=== PATIENT | female | born 1985 | race African-American/Black ===

== ENCOUNTER 2023-08-01 11:44 | Emergency (ER) | payer MEDICAID, SELFPAY ==
--- NOTE | ~2023-08-01 | XR_ITS ---
EXAMINATION: XR LUMBOSACRAL SPINE CLINICAL INFORMATION: Right lumbar pain COMPARISON: None available. TECHNIQUE: Three views of the lumbosacral spine. FINDINGS: The vertebral bodies and posterior elements are normal. The disc spaces are preserved and the vertebral alignment is normal. The paraspinal soft tissues are normal. XR/XR lumbar spine 2-3V IMPRESSION: Unremarkable lumbar spine examination.
--- NOTE | 2023-08-01 11:55 | ED.GENADULT ---
HPI - General Adult General Chief complaint: Back Pain/Injury Stated complaint: Back Pain No Injury Time Seen by Provider: 08/01/23 16:00 Source: patient and RN notes reviewed Mode of arrival: ambulatory Limitations: no limitations History of Present Illness HPI narrative: This is a 38 year old female, with a history of back pain, presenting to the emergency department with complaints of acute on chronic back pain x several weeks, worsening over th last week. Patient denies any recent trauma or injury. Patient states that she has had ongoing problems with her back ever since she had an epidural 15 years ago. Patient describes this pain as a burning like sensation in the right lower back that radiates down her right leg and into her right great toe. She has been taking over the counter Tylenol and naproxen without any relief period she denies any urinary or bowel incontinence. Denies saddle aesthesia. She states that her job requires her to wear high heels throughout the entire day. She states that the pain worsens with movement and with palpation. No other complaints or concerns at this time. MD complaint: back pain Onset (ago): week(s) Radiation: back and extremity Severity: severe Quality: burning Pain Consistency: constant Relieving factors: none Exacerbating factors: movement Associated symptoms: denies other symptoms Treatments prior to arrival: none Related Data Previous Rx's Medication Instructions Recorded acetaminophen 500 mg tablet 500 mg PO Q6H PRN pain #30 tabs 08/01/23 (Tylenol Extra Strength) ibuprofen 600 mg tablet 600 mg PO Q6H PRN pain #30 tabs 08/01/23 lidocaine 5 % topical patch 1 patch topical DAILY #30 ea 08/01/23 (Lidoderm) methocarbamol 750 mg tablet 1,500 mg (2 x 750 mg) PO TID 72 08/01/23 hours #18 tabs oxycodone 5 mg tablet 5 mg PO Q6H PRN pain #7 tabs 08/01/23 prednisone 20 mg tablet 20 mg PO DAILY 5 days #5 tabs 08/01/23 Allergies Allergy/AdvReac Type Severity Reaction Status Date / Time amoxicillin Allergy Hives Verified 08/01/23 11:56 Penicillins Allergy Hives Verified 08/01/23 11:56 Review of Systems Review of Systems: Yes all other systems are reviewed and are negative Constitutional: Constitutional: Reports as per [facility] Social History Social History Advance Directives: No Advance Directives Information Provided: No Physical Exam ED Vital Signs: Vital Signs - 24 hr 08/01/23 11:56 08/01/23 16:11 Temperature 98.1 F 97.3 F Pulse Rate 80 69 Respiratory Rate 20 16 Blood Pressure 122/74 107/86 Pulse Oximetry 99 100 Oxygen Delivery Method Room Air Room Air BMI result Body Mass Index 35.5 Const General: cooperative, comfortable and no acute distress Orientation/consciousness: patient oriented x3 Limitations: no limitations HENMT Head: Yes normal to inspection, Yes normocephalic and Yes atraumatic Ears: hearing grossly normal bilaterally General nose exam: Normal external nose present Face and sinus: Yes normal facial exam Mouth: Normal oral and palatal mucosa present, oropharynx normal and moist mucous membranes Throat: Yes posterior oropharynx normal Eyes General: appearance normal, both eyes and all related structures Eyelids: Yes eyelids normal Conjunctivae: conjunctivae normal Sclerae: sclerae normal Pupils: Equal, round and reactive pupils present EOM: EOMs intact bilaterally Neck Neck: Yes normal visual inspection, Yes full ROM and Yes no lymphadenopathy Lymphatic: no lymphadenopathy noted Chest Chest palpation & inspection: normal inspection of the chest Resp Effort & Inspection: normal respiratory effort and able to speak in complete sentences Auscultation: clear to auscultation bilaterally, no crackles, no rales, no rhonchi and no wheezes Cardio Rate: regular rate Rhythm: regular rhythm Heart sounds: S1 normal heart sound present and S2 normal heart sound present GI Other: Abdomen soft, nontender Inspection: Yes normal to inspection Back/Spine/Pelvis Other: TTP along the lumbar paraspinous muscles into the right buttocks and right SI joint. DTR 2+, strength 5/5 in LE bilaterally. patellar reflexes 2+. Skin General skin exam: no rashes or lesions noted Trauma: no lacerations or abrasions Wounds: no wounds Neuro General: patient oriented x3 and moves all extremities Cranial nerves: Yes Equal, round and reactive pupils present Extrem General: Yes normal to inspection Right upper extremity: normal to inspection Left upper extremity: normal to inspection Right lower extremity: normal to inspection Left lower extremity: normal to inspection Course Course Course Narrative: RME:?38 yo female w/ pmhx here with spine on fire , right low back pain down buttock to foot, worse w/ walking. stabbing sensation. +paresthesias down R leg. took tylenol at 1400 yesterday. naproxen 0600 this am. No IVDU. No previous back surgeries. No injury/trauma. Denies fever, dysuria, hematuria, bowel/bladder incontinence/retention, saddle anesthesia. Plan for xrays Full HPI, ROS and PE to be performed by the primary ED provider. Medications Administered Discontinued Medications Generic Name Dose Route Start Last Admin Trade Name Derickq PRN Reason Stop Dose Admin Ketorolac Tromethamine 30 mg 08/01/23 16:56 08/01/23 17:09 Ketorolac Tromethamine 30 Mg/Ml Vial IM 08/01/23 16:57 30 mg ONCE ONE Administration Oxycodone HCl 5 mg 08/01/23 16:56 08/01/23 17:10 Oxycodone Hcl Immed Release 5 Mg Tablet PO 08/01/23 16:57 5 mg ONCE ONE Administration Medical Decision Making Medical Decision Making [facility] Narrative: This is a 38 year old female, with a history of chronic back pain, presenting to the emergency department with complaints of acute on chronic back pain for the last several weeks, worsening for the last week. On arrival, vital signs within normal limits. Patient appears visibly uncomfortable, tearful, complaining of back pain. Patient has tenderness to palpation along her lumbar spine and into her right buttocks. Symptoms consistent with sciatica exacerbation. Discussed these findings with patient. Medicated with toradol and oxycodone in the department with good relief. Patient discharged on muscle relaxants, Prednisone, and advise to follow up with a primary care physician as she likely will need physical therapy and further treatment and evaluation. Patient understands and agrees with plan. She has no red flag back symptoms on exam. Patient is ambulatory with steady gate with 5/5 strength and lower extremities come on patellar reflex is 2+ bilaterally. Patient given return precautions, Her brother is at bedside who is driving her home, ?stable for discharge. Differential Diagnosis Differential Diagnoses: The differential diagnosis associated with the presentation includes sciatica, lumbar radiculopathy, dorsalgia Radiology Impression Discussion of test interpretation with radiology: I have reviewed the radiologist's reading. Radiologist Impression: XR LUMBOSACRAL SPINE CLINICAL INFORMATION: Right lumbar pain COMPARISON: None available. TECHNIQUE: Three views of the lumbosacral spine. FINDINGS: The vertebral bodies and posterior elements are normal. The disc spaces are preserved and the vertebral alignment is normal. The paraspinal soft tissues are normal. XR/XR lumbar spine 2-3V IMPRESSION: Unremarkable lumbar spine examination. Discharge Plan Discharge Clinical Impression: Sciatica Patient Disposition: Home, Self-Care Instructions: Sciatica (ED), Acute Low Back Pain (ED), Lower Back Exercises (ED) Additional Instructions: Your seen in the emergency department due to back pain. Your symptoms are consistent with sciatica. Please take prescribed medication as directed. You need to follow-up with the primary care physician, you can use the attached form for referral. Check with your insurance company to see if they accept your insurance. Please take prescribed medication as directed. Prednisone is a steroid, this is an anti-inflammatory, this will help with the inflammation in your back. I am also prescribing you Tylenol and Motrin to be taken for moderate pain. Can alternate between the 2 for better pain relief. I am also prescribing a muscle relaxant, please be advised that this can cause drowsiness, do not drink alcohol or drive while taking this. You may also apply lidocaine patches as needed for pain. Also prescribing you oxycodone. This is a strong narcotic pain medication that can be addictive. Please be advised to only take as needed for severe pain only. Do not drink alcohol drive while taking this medication. Please see attached low back exercises to help strengthen and stretch the area. If any new or worsening symptoms occur including but not limited to worsening pain, numbness and tingling into groin, urinary for bowel incontinence. Please return for re-evaluation. Prescriptions: New acetaminophen [Tylenol Extra Strength] 500 mg tablet 500 mg PO Q6H PRN (Reason: pain) Qty: 30 0RF ibuprofen 600 mg tablet 600 mg PO Q6H PRN (Reason: pain) Qty: 30 0RF lidocaine [Lidoderm] 5 % adhesive patch,medicated 1 patch topical DAILY Qty: 30 0RF Rx Instructions: leave on most painful area for up to 12 hrs methocarbamol 750 mg tablet 1,500 mg PO TID 3 Days Qty: 18 0RF prednisone 20 mg tablet 20 mg PO DAILY 5 Days Qty: 5 0RF oxycodone 5 mg tablet 5 mg PO Q6H PRN (Reason: pain) Qty: 7 0RF Rx Instructions: Partial Fill upon patient request. Interventions: ED Discharge Assessment Last Done: 08/01/23 18:25 Discharge Date/Time: 08/01/23 18:20
[2023-08-01 11:56] VITALS: BP 122/74; PULSE 80; RESP 20; TEMP 36.7; O2SAT 99; BMI 35.5
[2023-08-01 16:11] VITALS: BP 107/86; PULSE 69; RESP 16; TEMP 36.3; O2SAT 100
[2023-08-01] MEDS: Ketorolac Tromethamine 30 MG/ML VIAL IM (17:09)
[2023-08-01] MEDS: oxyCODONE HCl Immed Release 5 MG TABLET PO (17:10)
[2023-08-01 18:00] VITALS: BP 121/65; PULSE 68; RESP 16; O2SAT 97
== END 2023-08-01 18:20 | disposition home or self-care (01) ==
PROVIDERS: Emergency Provider Emergency Medicine
DX: M54.42 Lumbago with sciatica, left side (principal); M54.41 Lumbago with sciatica, right side
CPT/HCPCS: 72100; 96372; 99284; J1885

== ENCOUNTER 2024-01-30 05:51 | Emergency (ER) | payer MEDICAID, SELFPAY ==
--- NOTE | ~2024-01-30 | XR_ITS ---
EXAMINATION: XR SHOULDER, LEFT CLINICAL INFORMATION: injury from moving sofa COMPARISON: None available. TECHNIQUE: AP external rotation, Grashey, scapular Y, and axillary views of the left shoulder. FINDINGS: The bones and soft tissues are normal. No fracture. Glenohumeral and acromioclavicular alignment is anatomic with normal joint space. No abnormal soft tissue calcifications. XR/XR shoulder LT min 2V IMPRESSION: Normal left shoulder radiographs
[2024-01-30 05:53] VITALS: BP 111/73; PULSE 74; RESP 18; TEMP 37.3; O2SAT 98; BMI 35.2
--- NOTE | 2024-01-30 06:25 | ED.EXTPRO ---
HPI - Extremity Problem General Chief complaint: Extremity Injury, Upper Stated complaint: L arm pain Time Seen by Provider: 01/30/24 06:21 Source: patient Mode of arrival: ambulatory Limitations: no limitations History of Present Illness ED Provider: Dr. Hu HPI Narrative: Patient injured her shoulder 2 months ago when she was lifting a sectional couch Complaint: extremity pain Onset (ago): month(s) Pain Consistency: constant Location: left and other (shoulder) Quality: burning and stabbing Related Data Previous Rx's ?Medication ?Instructions ?Recorded acetaminophen 500 mg tablet 500 mg PO Q6H PRN pain #30 tabs 08/01/23 (Tylenol Extra Strength) ibuprofen 600 mg tablet 600 mg PO Q6H PRN pain #30 tabs 08/01/23 lidocaine 5 % topical patch 1 patch topical DAILY #30 ea 08/01/23 (Lidoderm) methocarbamol 750 mg tablet 1,500 mg (2 x 750 mg) PO TID 72 08/01/23 hours #18 tabs oxycodone 5 mg tablet 5 mg PO Q6H PRN pain #7 tabs 08/01/23 prednisone 20 mg tablet 20 mg PO DAILY 5 days #5 tabs 08/01/23 cyclobenzaprine 10 mg tablet 10 mg PO TID #10 tabs 01/30/24 naproxen 500 mg tablet (Naprosyn) 500 mg PO BID #20 tabs 01/30/24 Allergies Allergy/AdvReac Type Severity Reaction Status Date / Time amoxicillin Allergy Hives Verified 01/30/24 05:56 Penicillins Allergy Hives Verified 01/30/24 05:56 Review of Systems Review of Systems: Yes all other systems are reviewed and are negative Neurologic: Denies Sensory deficit (Neuro) [facility] Social History Social History Patient : No Physical Exam Vital Signs: Vital Signs: Last Vital Signs Temp 99.1 F 01/30/24 05:53 Pulse 74 01/30/24 05:53 Resp 18 01/30/24 05:53 BP 111/73 01/30/24 05:53 Pulse Ox 98 01/30/24 05:53 O2 Del Method Room Air 01/30/24 05:53 BMI result Body Mass Index 35.2 Const: Other: anxious tearful General: healthy appearing Nutritional Appearance: average body habitus Orientation/consciousness: oriented to person and patient oriented x3 Limitations: no limitations HEENT: Head: Yes normal to inspection Ears: external ears normal General nose exam: Normal external nose present Mouth: Normal oral and palatal mucosa present and oropharynx normal Throat: Yes posterior oropharynx normal Eyes: General: appearance normal, both eyes and all related structures Neck: Other: supple Neck: Yes normal visual inspection Chest: Chest palpation & inspection: normal inspection of the chest Resp: Auscultation: clear to auscultation bilaterally Cardio: Jugular venous distension: no JVD Rate: regular rate Rhythm: regular rhythm Heart sounds: S1 normal heart sound present and S2 normal heart sound present GI: Inspection: Yes normal to inspection Palpation (GI): Soft to palpation, nontender and No hepatosplenomegaly present Auscultation: normal bowel sounds : General: Yes no CVA tenderness Back/Spine/Pelvis: Back: no CVA tenderness Skin: General skin exam: no rashes or lesions noted Neuro: General: oriented to person and patient oriented x3 Cranial nerves: Yes CN's II-XII intact bilaterally Motor exam (neuro): 5/5 motor strength present throughout Sensory Exam: No Sensory deficit (Neuro) Extrem: Other: shoulder with no redness no effusion, pain to the biceps tendon pain with internal and external rotation Psych: Appearance: grossly normal Course Reevaluation(s) Reevaluation #1: patient with tendonitis will treat with NSAIDS Time: 06:28 Medical Decision Making Differential Diagnosis Differential Diagnoses: The differential diagnosis associated with the presentation includes (bursitis, tendonitis, septic joint, shoulder strain) Independent Interpretation I performed an independent interpretation of an: Plain X-Ray (shoulder joint well preserved, no arthritis ) Tests considered The following testing was considered but not selected: MRI of shoulder considered Prescription Management I considered prescription management with: Pain Medication (will use NSAIDS and flexeril for pain for bursitis/tendonitis) Discharge Plan Discharge Clinical Impression: Bursitis and tendinitis of shoulder region Patient Disposition: Home, Self-Care Instructions: Shoulder Bursitis (ED) Prescriptions: New cyclobenzaprine 10 mg tablet 10 mg PO TID Qty: 10 0RF naproxen [Naprosyn] 500 mg tablet 500 mg PO BID Qty: 20 0RF No Action acetaminophen [Tylenol Extra Strength] 500 mg tablet 500 mg PO Q6H PRN (Reason: pain) Qty: 30 0RF ibuprofen 600 mg tablet 600 mg PO Q6H PRN (Reason: pain) Qty: 30 0RF lidocaine [Lidoderm] 5 % adhesive patch,medicated 1 patch topical DAILY Qty: 30 0RF Rx Instructions: leave on most painful area for up to 12 hrs methocarbamol 750 mg tablet 1,500 mg PO TID 3 Days Qty: 18 0RF prednisone 20 mg tablet 20 mg PO DAILY 5 Days Qty: 5 0RF oxycodone 5 mg tablet 5 mg PO Q6H PRN (Reason: pain) Qty: 7 0RF Rx Instructions: Partial Fill upon patient request. Referrals: Physician,None [Primary Care Provider] - 5 days Print Language: Norwegian
[2024-01-30] MEDS: Ketorolac Tromethamine 60 MG/2 ML VIAL IM (06:53)
[2024-01-30] MEDS: Cyclobenzaprine HCl 10 MG TABLET PO (06:55)
[2024-01-30 07:01] VITALS: BP 107/73; PULSE 71; RESP 16; TEMP 36.1; O2SAT 100
== END 2024-01-30 07:08 | disposition home or self-care (01) ==
PROVIDERS: Emergency Provider Emergency Medicine
DX: M75.52 Bursitis of left shoulder (principal); M79.602 Pain in left arm
CPT/HCPCS: 73030; 96372; 99284; J1885

== ENCOUNTER 2024-04-29 | Outpatient (REF) | payer MEDICAID, SELFPAY ==
[2024-04-30 13:08] LABS: Bacterial Vaginosis PCR POSITIVE (Negative); Candida Group PCR NOT DETECTED (Not Detect); Candida glab krusei PCR NOT DETECTED (Not Detect); Trichomonas vaginalis PCR NOT DETECTED (Not Detect)
[2024-04-30 13:30] LABS: CT PCR NOT DETECTED (Not Detect.); NG PCR NOT DETECTED (Not Detect.)
== END 2024-04-29 00:01 | disposition home or self-care (01) ==
LOC: HO.HHCLNP
PROVIDERS: Visit Provider Nurse Practitioner
DX: N89.8 Other specified noninflammatory disorders of vagina (principal)
CPT/HCPCS: 0352U; 87491; 87591

== ENCOUNTER 2024-06-05 18:05 | Outpatient (REF) | payer MEDICAID, SELFPAY ==
[2024-06-06 11:14] LABS: Bacterial Vaginosis PCR POSITIVE (Negative); Candida Group PCR NOT DETECTED (Not Detect); Candida glab krusei PCR NOT DETECTED (Not Detect); Trichomonas vaginalis PCR NOT DETECTED (Not Detect)
== END 2024-06-05 18:06 | disposition home or self-care (01) ==
LOC: HO.HHCLNP 18:05
PROVIDERS: Visit Provider Nurse Practitioner Family
DX: N89.8 Other specified noninflammatory disorders of vagina (principal)
CPT/HCPCS: 0352U

== ENCOUNTER 2024-08-23 13:29 | Outpatient (RCR) | payer OTHER, MEDICAID, SELFPAY | END 2024-08-30 14:15 | disposition home or self-care (01) | LOC: HO.OT 13:29 | PROVIDERS: PCP Nurse Practitioner Primary Care; Visit Provider Nurse Practitioner Primary Care | DX: S42.412D Displaced simple supracondylar fracture without intercondylar fracture of left humerus, subsequent encounter for fracture with routine healing (principal) | CPT/HCPCS: 97110; 97140; 97166 ==

== ENCOUNTER 2024-12-19 11:05 | Outpatient (REF) | payer MEDICAID, SELFPAY ==
--- OUTSIDE RECORDS SUMMARY | 2024-12-19 12:19 | XMS_ITS | Encounter Summary ---
Author Organization [employer] Address [address] [facility] [address] [facility] [place] [address] Care Team Providers Care Forming Department End Finder Name Role Phone Sara Alvarez Primary Care Provider Reason for Visit * Reason Onset Date Comments CHART PREP 12/18/2024 Encounter Details Date Type Department Care Team ([facility] st Contact Info) Description 12/18/2024 Telephone [facility] [address] [place], [place] [id number] Jadon Astudillo [place] CHART PREP Social History Tobacco Use Types Packs/Day Years Used Date Smoking Tobacco: Some Days Cigarettes Smokeless Tobacco: Never Alcohol Use Standard Drinks/Week Comments Yes 0 (1 standard drink = 0.6 oz pur e alcohol) Depression Answer Date Recorded Patient Health Questionnaire-9 Score 10 12/19/2024 Patient Health Questionnaire-9 Score 10 12/19/2024 Last PHQ-9: Questionnaire Data Not on file 0 12/19/2024 Housing Stability Answer Date Recorded What is your housing situation today? I have hamiltonhemant garcia 05/10/[address] you li ve. Do you have problems with any of the following? None of the above 05/10/2024 Food Insecurity Answer Date Recorded Within the past 12 months, y ou worried that your food would run out before you got money to buy more: Never True 05/10/2024 Within the past 12 months,th e food you bought just didn't last and you didn't have enough money to get more: Never True 11/2023 Transportation Answer Date Recorded In the past 12 months, has l ack of transportation kept you from medical appts, meetings, work or from getting things needed for daily living? Yes, it has kept me from medical appointments or getting medications. 05/10/2024 Utilities Answer Date Recorded In the past 12 months, has t he electric, gas, oil or water company threatened to shut off services in your home? No 05/10/2024 Depression Answer Date Recorded Patient Health Questionnaire-2 Score 4 12/19/2024 Internet Access Answer Date Recorded Internet Access Q1 Yes 05/10/2024 Internet Access Q2 Not on file 05/10/2024 Comments Unknown Sex and Gender Information Value Date Recorded Sex Assigned at Female 05/14/2024 4:03 PM EDT Legal Sex Female 3:43 PM EDT Gender Identity Female 05/14/2024 4:03 PM EDT Sexual Orientation Straight 05/14/2024 4: 03 PM EDT documented as of this encounter Miscellaneous Notes * Telephone Encounter - Jadon Astudillo MA - 12/18/2024 2:48 PM EDT ..Chart Prep Labs: not done Images: not applicable Referrals: no show. Pt discharged Vaccines due: Tdap and Hep B, PCV20 Screenings: pap smear and STI screening Overdue care gaps: SBIRT, PHQ-9, CATRINA-7, and Disability screen documented in this encounter Plan of Treatment Upcoming Encounters Date Type Department Care Team (Late st Contact Info) Description 02/03/2025 1:15 PM EDT Procedure Visit [facility] [address] [place] [address] Juani Hollingsworth CNM [address] [place] [address] documented as of this encounter Visit Diagnoses Not on filedocumented in this encounter Care Teams Forming Department End Finder Relationship Specialty Start Date End Date Sara Alvarez ANP [address] [place] [address] PCP - General Family Medicine 06/21/24 documented as of this encounter
--- OUTSIDE RECORDS SUMMARY | 2024-12-19 12:19 | XMS_ITS | Encounter Summary ---
Author Organization [employer] Address [address] [place] [address] Care Team Providers Care Acid Operator Name Role Phone Sara Alvarez Primary Care Provider [phone] Encounter Details Date Type Department Care Team (Latest Contact Info) Description 12/19/2024 Travel Social History Tobacco Use Types Packs/Day Years [...] is your housing situation today? I have hamilton garcia 05/10/[address] you [...] PM EDT documented as of this encounter Functional Status * Over the past 2 weeks, how often have you been bothered by any of the following problems? Question Answer Date of Assessment Author Patient Health Questionnaire -2 Score 4 12/19/2024 11:39 AM EDT Jadon Astudillo MA * Little interest or pleasure in doing things Answer Date of Assessment Author More than half the days 12/19/2024 11:39 AM EDT Debbie Astudilloia MA * Feeling down, depressed, or hopeless Answer Date of Assessment Author More than half the days 12/19/2024 11:39 AM EDT Jadon Astudillo MA * Trouble falling or staying asleep, or sleeping too much Answer Date of Assessment Author More than half the days 12/19/2024 11:39 AM EDT Jadon Astudillo MA * Feeling tired or having little energy Answer Date of Assessment Author Several days 12/19/2024 11:39 AM EDT WildaDebbie akbaria MA * Poor appetite or overeating Answer Date of Assessment Author Not at all 12/19/2024 11:39 AM EDT Jadon Astudillo MA * Feeling bad about yourself - or that you are a failure or have let yourself or your family down Answer Date of Assessment Author Several days 12/19/2024 11:39 AM EDT Jadon Astudillo MA * Trouble concentrating on things, such as reading the newspaper or watching television Answer Date of Assessment Author More than half the days 12/19/2024 11:39 AM EDT Jadon Astudillo MA * Moving or speaking so slowly that other people could have noticed? Or the opposite - being so fidgety or restless that you have been moving around a lot more than usual. Answer Date of Assessment Author Not at all 12/19/2024 11:39 AM EDT Jadon Astudillo MA * Thoughts that you would be better off or hurting yourself in some way Answer Date of Assessment Author Not at all 12/19/2024 11:39 AM EDT Jadon Astudillo MA * Patient Health Questionnaire-9 Score Answer Date of Assessment Author 10 12/19/2024 11:39 AM EDT Jadon Astudillo MA documented as of this encounter Plan of Treatment Upcoming Encounters Date Type Department Care Team (Late st Contact Info) Description 02/03/2025 1:15 PM EDT Procedure Visit [facility] [address] [place] [address] Juani Hollingsworth CNM [address] [place] [address] documented as of this encounter Visit Diagnoses Not on filedocumented in this encounter Additional Health Concerns Assessment Noted Time PHQ-9 Depression Total Score: 025 11:39 AM EDT documented as of this encounter Care Teams Acid Operator Relationship Specialty Start Date End Date Sara Alvarez ANP [address] [place] [address] PCP - General Family Medicine 06/21/24 documented as of this encounter
--- OUTSIDE RECORDS SUMMARY | 2024-12-19 12:19 | XMS_ITS | Encounter Summary ---
Author Organization [facility] Address [address] [place] [address] Care Team Providers Care Exterminator Termite Name Role Phone Sara Alvarez Primary Care Provider [phone] Reason for Referral * Consultation (Routine) - Closed Specialty Diagnoses / Procedures Referred By Holland lubin Referred To Contact Occupational Therapy Diagnoses Closed supracondylar fracture of left humerus with routine healing Sara Alvarez ANP [address] [place] [address] Phone: tel: fax: [facility] [address] [place] [address] Phone: tel: fax: Referral ID Status Reason Start Date Expiration Date V isits Requested Visits Authorized [id number] Closed Specialty Services Required 12/19/2024 12/19/2025 20 20 * Consultation (Routine) - Closed Specialty Diagnoses / Procedures Referred By Holland lubin Referred To Contact Obstetrics Diagnoses Infertility, female Sara Alvarez ANP [address] [place] [address] Phone: tel: fax: Reproductive Medicine, [facility] [address] [place] [address] Phone: tel: fax: Referral ID Status Reason Start Date Expiration Date V isits Requested Visits Authorized [id number] Closed Specialty Services Required 12/19/2024 12/19/2025 1 1 Encounter Details Date Type Department Care Team (Latest Contact Info) Description 12/19/2024 10:15 AM EDT Office Visit [facility] [address] [place] [address] Sara Alvarez ANP [address] [place] [address] Routine screening for STI (sexually transmitted infection) (Primary Dx); Screening, lipid; Screening for diabetes mellitus; Healthcare maintenance; Infertility, female; Closed supracondylar fracture of left humerus with routine healing Social History Tobacco Use Types Packs/Day Years [...] PM EDT documented as of this encounter Last Filed Vital Signs Vital Sign Reading Time Taken Comments Blood Pressure 115/76 12/19/2024 10:31 AM EDT Pulse 85 12/19/2024 10:31 AM EDT Temperature 36.7 ??C (98.1 ??F) 12/19/2024 10:31 AM E DT Respiratory Rate 17 12/19/2024 10:31 AM EDT Oxygen Saturation - - Inhaled Oxygen Concentration - - Weight 85.3 kg (188 lb) 12/19/2024 10:31 AM EDT Height 152.4 cm (5') 12/19/2024 10:31 AM EDT Body Mass Index 36.72 12/19/2024 10:31 AM EDT documented in this encounter Functional Status * Over the past 2 weeks, how often have you been bothered by any of the following problems? Question Answer Date of Assessment Author Patient Health Questionnaire -2 Score 4 12/19/2024 11:39 AM EDT WildaJadon akbar [place] * Little interest or pleasure in doing things Answer Date of Assessment Author More than half the days 12/19/2024 11:39 AM EDT WildaDebbie akbaria [place] * Feeling down, depressed, or hopeless Answer Date of Assessment Author More than half the days 12/19/2024 11:39 AM EDT WildaDebbie akbaria, [place] * Trouble falling or staying asleep, or sleeping too much Answer Date of Assessment Author More than half the days 12/19/2024 11:39 AM EDT WildaDebbie akbaria, [place] * Feeling tired or having little energy Answer Date of Assessment Author Several days 12/19/2024 11:39 AM EDT Debbie Astudilloia [place] * Poor appetite or overeating Answer Date of Assessment Author Not at all 12/19/2024 11:39 AM EDT Debbie Astudilloia [place] * Feeling bad about yourself - [...] Description 02/03/2025 1:15 PM EDT Procedure Visit [facility] [address] [place], [place] [phone] Juani Hollingsworth CNM [address] [place], [place] [phone] Scheduled Orders Name Type Priority Associated Diagnoses Orde r Schedule Chlamydia/N. Gonorrhoeae RNA, TMA, Urogenitial Microbiology Routine Routine screening for STI (sexually transmitted infection) Ordered: 12/19/2024 HIV-1/2 Antigen and Antibodies, Fourth Generation, with Reflexes Lab Routine Routine screening for STI (sexually transmitted infection) Expected: 12/19/2024 (Approximate), Expires: 12/19/2025 RPR (Monitor) with Reflex to??Titer Lab Routine Routine screening for STI (sexually transmitted infection) Expected: 12/19/2024 (Approximate), Expires: 12/19/2025 Hepatitis C Antibody with Reflex to HCV, RNA, Quantitative, Real-Time PCR Lab Routine Routine screening for STI (sexually transmitted infection) Expected: 12/19/2024 (Approximate), Expires: 12/19/2025 Lipid Panel, Standard Lab Routine Screening, lipid Expected: 12/19/2024 (Approximate), Expires: 12/19/2025 Hemoglobin A1c Lab Routine Healthcare maintenance Expected: 12/19/2024 (Approximate), Expires: 12/19/2025 TSH W/Reflex to FT4 Lab Routine Healthcare maintenance Expected: 12/19/2024 (Approximate), Expires: 12/19/2025 Scheduled Referrals Name Type Priority Associated Diagnoses Orde r Schedule Referral to Infertility Outpatient Referral Routine Infertility, female Expected: 12/19/2024 (Approximate), Expires: 12/19/2025 Referral to Occupational Therapy Outpatient Referral Routine Closed supracondylar fracture of left humerus with routine healing Expected: 12/19/2024 (Approximate), Expires: 12/19/2025 documented as of this encounter Visit Diagnoses Diagnosis Routine screening for STI (sexually transmitted infection)- Primary Screening examination for venereal disease Screening, lipid Screening for diabetes mellitus Healthcare maintenance Infertility, female Closed supracondylar fracture of left humerus with routine healing documented in this encounter Additional Health Concerns Assessment Noted Time PHQ-9 Depression Total Score: 10 025 11:39 AM EDT documented as of this encounter Care Teams Exterminator Termite Relationship Specialty Start Date End Date Sara Alvarez ANP [address] [place] [phone] PCP - General Family Medicine 06/21/24 documented as of this encounter
--- OUTSIDE RECORDS SUMMARY | 2024-12-19 12:19 | XMS_ITS | Clinical Summary ---
Author Organization Patient Business Ser [facility] Address [address] [place] [address] Care Team Providers Care Riprap Placing Supervisor Name Role Phone Unavailable Primary Care Provider Unavailabl e Social History Tobacco Use Types Packs/Day Years Used Date Smoking Tobacco: Never Assessed Comments Unknown Sex and Gender Information Value Date Recorded Sex Assigned at Not on file Legal Sex Female 6:07 PM EDT Gender Identity Not on file Sexual Orientation Not on file Plan of Treatment Health Maintenance Due Date Last Done Comments DTaP,Tdap,and Td Vaccines (1 - Tdap) 2005 Hepatitis B Vaccines (1 of 3 - 19+ 3-dose series) 2005 Cervical Cancer Screening: P ap Smear 2007 COVID-19 Vaccine (2023-2 5 season) 2024 Influenza Vaccine (Season Ended) 2025 HIB Vaccines Aged Out No longer eligi ble based on patient's age to complete this topic HPV Vaccines Aged Out No longer eligi ble based on patient's age to complete this topic Hepatitis A Vaccines Aged Out No long er eligible based on patient's age to complete this topic IPV Vaccines Aged Out No longer eligi ble based on patient's age to complete this topic MMR Vaccines Aged Out No longer eligi ble based on patient's age to complete this topic Meningococcal ACWY Vaccine Aged Out N o longer eligible based on patient's age to complete this topic Meningococcal B Vaccine Aged Out No l onger eligible based on patient's age to complete this topic Pneumococcal Vaccine: Pediat rics (0 to 5 Years) and At-Risk Patients (6 to 64 Years) Aged Out No longer eligible b ased on patient's age to complete this topic RSV Immunization Patients Un sneha 20 months Aged Out No longer eligible b ased on patient's age to complete this topic Varicella Vaccines Aged Out No longer eligible based on patient's age to complete this topic
--- OUTSIDE RECORDS SUMMARY | 2024-12-19 12:19 | XMS_ITS | Clinical Summary ---
Author Organization [employer] Address [address] [place] [address] [address] [place] [address] Care Team Providers Care Singing Waiter Or Waitress Name Role Phone Sara Alvarez KENNETH Primary Care Provider [phone] Allergies Active Allergy Reactions Criticality Noted Date Comments Amoxicillin Hives 04/29/2024 Penicillins Hives 04/29/2024 Medications docusate sodium (Colace) 100 MG capsule TAKE 1 CAPSULE BY MOUTH TWICE A DAY 180 capsule 08/12/19 25 Active acetaminophen (Tylenol) 500 MG tablet TAKE 2 TABLETS BY MOUTH EVERY 8 HOURS NEEDED FOR MILD OR MODERATE PAIN 30 tablet 08/12/19 25 Active gabapentin (Neurontin) 800 MG tabletIndication s:Closed supracondylar fracture of left humerus with routine healing Take 1 tablet (800 mg) by mouth 3 times daily. 90 tablet 2 12/20/19 25 026 Active cyclobenzaprine (Flexeril) 10 MG tabletIndication s:Closed supracondylar fracture of left humerus with routine healing Take 1 tablet (10 mg) by mouth 3 times daily. 90 tablet 1 12/20/19 25 Active gabapentin (Neurontin) 300 MG capsuleIndicatio ns:Closed supracondylar fracture of left humerus with routine healing, subsequent encounter TAKE 1 CAPSULE BY MOUTH THREE TIMES A DAY 90 capsule 1 08/12/19 25 025 Discontinued(Do se adjustment) cyclobenzaprine (Flexeril) 5 MG tabletIndication s:Closed supracondylar fracture of left humerus with routine healing, subsequent encounter TAKE 1 TABLET BY MOUTH UP TO THREE TIMES A DAY NEEDED 40 tablet 08/12/19 25 025 Discontinued(In effective) cyclobenzaprine (Flexeril) 10 MG tablet Take 1 tablet by mouth every 6 (six) hours during the day. 10/15/19 25 025 Discontinued(Re order (will not trigger notification to Pharmacy)) Active Problems Problem Noted Date Diagnosed Date Closed supracondylar fractur e of left humerus with routine healing 06/05/2024 Assessment & Plan (06/05/2024 4:25 PM EDT): Pt pain is still not under control, 10/10 on pain scale reported by patient Will increase gabapentin to 300 mg TID Will send rx for flexeril 5 mg TID as needed, with one dose at bedtime Pt will RTC if pain worsens or doesn't improve Referral placed to OT today Pt plans to call ortho to schedule f/u. Vaginitis 06/05/2024 Assessment & Plan (06/05/2024 4:22 PM EDT): Will obtain self swabs for Bv/yeast today, if tx required will send rx for 0.75%metrogel to be applied intravaginally at bedtime x 5 days. Advised pt to abstain from use of scented soaps and detergents. Encounters Date Type Department Care Team Description 12/19/2024 10:15 AM EDT Office Visit [facility] [address] [place] [phone] Sara Alvarez ANP Routine screening for STI (sexually transmitted infection) (Primary Dx); Screening, lipid; Screening for diabetes mellitus; Healthcare maintenance; Infertility, female; Closed supracondylar fracture of left humerus with routine healing 12/19/2024 Travel 12/18/2024 Telephone [facility] [address] [place] [address] Jadon Astudillo [place] CHART PREP 10/18/2024 Population Health Risk Score [facility] ([facility] Department [address] [place] [phone] Provider, Population Health Generic from Last 3 Months Immunizations Immunization Administration Dates Next Due Tdap 12/19/2024 Social History Tobacco Use Types Packs/Day Years Used Date Smoking Tobacco: Some Days Cigarettes Smokeless Tobacco: Never Tobacco Cessation:Ready to Q uit: Not Asked; Counseling Given: Not Answered Alcohol Use Standard Drinks/Week Comments Yes 0 [...] Orientation Straight 05/14/2024 4: 03 PM EDT Last Filed Vital Signs Vital Sign Reading Time Taken Comments Blood Pressure 115/76 12/19/2024 10:31 AM EDT Pulse 85 12/19/2024 10:31 AM EDT Temperature 36.7 ??C (98.1 ??F) 12/19/2024 10:31 AM E DT Respiratory Rate 17 12/19/2024 10:31 AM EDT Oxygen Saturation 100% 04/29/2024 4:54 PM EDT Inhaled Oxygen Concentration - - Weight 85.3 kg (188 lb) 12/19/2024 10:31 AM EDT Height 152.4 cm (5') 12/19/2024 10:31 AM EDT Body Mass Index 36.72 12/19/2024 10:31 AM EDT Plan of Treatment Upcoming Encounters Date Type Department Care Team ([facility] st Contact Info) Description 02/03/2025 1:15 PM EDT Procedure Visit [facility] [address] [place], [place] [phone] Juani Hollingsworth, CNSabiha [address] [place], [place] [phone] Health Maintenance Due Date Last Done Comments HIV Screening 1986 Lipid Panel 1986 Family Planning (PISQ) 2001 Hepatitis C Screening 01/27/2004 Pneumococcal Vaccine: Pediatrics (0 to 5 Years) and At-Risk Patients (6 to 49) Years) (1 of 2 - PCV) 2005 Pap Smear 2007 Hepatitis B Vaccines (2 of 3 - 19+ 3-dose series) 04/24/2007 03/27/2007 Cervical Cancer Screening 01/27/2016 HPV/Cotest 01/27/2016 COVID-19 Vaccine ( - 2023-2 5 season) 2024 Influenza Vaccine (#1) 2024 07/17/2020 SDOH Screening 05/10/2025 05/10/2024 Alcohol/Substance Use Screening 12/19/2025 12/19/2024 Depression Screening 12/19/2025 12/19/2024, 12/19/2024 Tobacco Screening 12/19/2025 12/19/2024 DTaP/Tdap/Td Vaccines (3 - T d or Tdap) 12/19/2034 12/19/2024, 05/08/2014 Zoster Vaccines (1 of 2) 01/27/2036 RSV Patients and Patients Aged 60 years or older (1 - 1-dose 75+ series) 2061 HIB Vaccines Aged Out No longer eligi [...] patient's age to complete this topic Meningococcal Vaccine Aged Out No merly castillo eligible based on patient's age to complete this topic RSV under 20 months Aged Out No longe r eligible based on patient's age to complete this topic Rotavirus Vaccines Aged Out No longer eligible based on patient's age to complete this topic Insurance [facility] Care Teams Singing Waiter Or Waitress Relationship Specialty Start Date End Date Sara Alvarez ANP [address] [place] [address] PCP - General Family Medicine 06/21/24
[2024-12-19 13:27] LABS: Appearance Urine Cloudy; Color Urine Yellow; Glucose Urine UA Negative (Negative); Leukocyte Esterase Urine Negative (Negative); Nitrite Urine Negative (Negative); PH 5.5 (5.0-9.0); Specific Gravity - Urine 1.025 (1.005-1.025); Urine Blood Negative (Negative); Urine Ketones Negative (Negative); Urine Protein Negative (Neg-Trace)
[2024-12-19 13:34] LABS: Bacteria Urine None Seen (None Seen); Hyaline Casts Urine 0-2 /LPF (0-2); RBC Urine 0-2 /HPF (0-2); Squamous Epithelial Cell Urine 0-2 /HPF (0-2); WBC Urine 0-5 /HPF (0-5)
[2024-12-19 13:50] LABS: Estimated Average Glucose 97 mg/dL; Hemoglobin A1C 98.4137 umol/L; Total Hemoglobin (HGBA1C) 3132.3911 umol/L
[2024-12-19 13:59] LABS: Alanine Aminotransferase 11 U/L (0-31); Albumin Level 4.1 g/dL (3.5-5.0); Alkaline Phosphatase 60 U/L (39-117); Aspartate Amino Transferase 23 U/L (5-31); Bilirubin Direct 0.1 mg/dL (0.0-0.5); Bilirubin Total 0.3 mg/dL (0.0-1.0); Cholesterol 139 mg/dL (<200); HDL Cholesterol 61 mg/dL (>40); LDL Cholesterol Calculated 70 mg/dL (<100); Total Protein 6.9 g/dL (6.5-8.0); Triglycerides 44 mg/dL (<150)
[2024-12-19 14:12] LABS: TSH reflex Free T4 2.57 uIU/mL (0.32-4.0)
[2024-12-19 14:15] LABS: HIV AB/AG Nonreactive (Nonreactive); HIV Num 1 0.07 S/CO (0.00-0.99); ~HepC Num1 0.16 S/CO (0.00-0.79); ~Hepatitis C Antibody Nonreactive (Nonreactive)
[2024-12-19 14:16] LABS: HBS Num1 0.05 mIU/mL (0-7.99); HBc Num1 0.16 S/CO (0.00-0.79); HBsAGNum1 0.38 S/CO (0.00-0.99); HIV AB/AG Nonreactive (Nonreactive); HIV Num 1 0.06 S/CO (0.00-0.99); Hepatitis B Core Antibody Nonreactive (Nonreactive); Hepatitis B Surface Antigen Negative (Negative); ~HepC Num1 0.15 S/CO (0.00-0.79); ~Hepatitis B Surface Antibody NONREACTIVE (Nonreactive); ~Hepatitis C Antibody Nonreactive (Nonreactive)
[2024-12-24 11:39] LABS: RPR Rapid Plasma Reagin NON-REACTIVE (NON-REACTIVE)
== END 2024-12-19 11:06 | disposition home or self-care (01) ==
LOC: HO.HHCL 11:05
PROVIDERS: Nurse Practitioner; Visit Provider Nurse Practitioner Primary Care
DX: Z00.00 Encounter for general adult medical examination without abnormal findings (principal); Z13.220 Encounter for screening for lipoid disorders; Z11.3 Encounter for screening for infections with a predominantly sexual mode of transmission; Z11.4 Encounter for screening for human immunodeficiency virus [HIV]; R82.90 Unspecified abnormal findings in urine
CPT/HCPCS: 36415; 80061; 80076; 81001; 83036; 84443; 86592; 86704; 86706; 86803; 87340; 87389

== ENCOUNTER 2025-01-31 17:45 | Outpatient (REF) | payer MEDICAID, SELFPAY ==
[2025-02-01 03:40] LABS: CT PCR NOT DETECTED (Not Detect.); NG PCR NOT DETECTED (Not Detect.)
[2025-02-01 09:06] LABS: Bacterial Vaginosis PCR POSITIVE (Negative); Candida Group PCR NOT DETECTED (Not Detect); Candida glab krusei PCR NOT DETECTED (Not Detect); Trichomonas vaginalis PCR NOT DETECTED (Not Detect)
== END 2025-01-31 17:46 | disposition home or self-care (01) ==
LOC: HO.HHCLNP 17:45
PROVIDERS: Visit Provider Nurse Practitioner Family
DX: N94.9 Unspecified condition associated with female genital organs and menstrual cycle (principal); Z11.3 Encounter for screening for infections with a predominantly sexual mode of transmission
CPT/HCPCS: 81515; 87491; 87591

== ENCOUNTER 2025-02-10 14:08 | Outpatient (RCR) | payer MEDICAID, SELFPAY | END 2025-03-28 10:40 | disposition home or self-care (01) | LOC: HO.OT 14:08 | PROVIDERS: PCP Nurse Practitioner Primary Care; Visit Provider Nurse Practitioner Primary Care | DX: S42.412D Displaced simple supracondylar fracture without intercondylar fracture of left humerus, subsequent encounter for fracture with routine healing (principal); M25.522 Pain in left elbow; Z98.890 Other specified postprocedural states | CPT/HCPCS: 97035; 97110; 97140; 97165 ==

== ENCOUNTER 2025-08-02 17:30 | Emergency (ER) | payer MEDICAID, SELFPAY ==
[2025-08-02 17:49] VITALS: BP 124/72; PULSE 84; RESP 18; TEMP 36.8; O2SAT 97; BMI 34.9
--- NOTE | 2025-08-02 18:28 | ED.GENADULT ---
HPI - General Adult General Chief complaint: Eye Problems Stated complaint: [place] eye? Time Seen by Provider: 08/02/25 18:13 Source: patient, RN notes reviewed and old records reviewed Mode of arrival: ambulatory Limitations: no limitations History of Present Illness ED Provider: Duane MARTÍNEZ narrative: 40-year-old female presents for evaluation of left eye itching and redness pain She reports her symptoms started yesterday. She had some discharge to the eye yesterday and this morning. She has been using warm compresses with minimal improvement. She did not get anything in her eye that she can remember pain She does not have any significant pain she does not wear glasses or contacts denies any vision loss Related Data Previous Rx's ?Medication ?Instructions ?Recorded acetaminophen 500 mg tablet 500 mg PO Q6H PRN pain #30 tabs 08/01/23 (Tylenol Extra Strength) ibuprofen 600 mg tablet 600 mg PO Q6H PRN pain #30 tabs 08/01/23 lidocaine 5 % topical patch 1 patch topical DAILY #30 ea 08/01/23 (Lidoderm) methocarbamol 750 mg tablet 1,500 mg (2 x 750 mg) PO TID 72 08/01/23 hours #18 tabs oxycodone 5 mg tablet 5 mg PO Q6H PRN pain #7 tabs 08/01/23 prednisone 20 mg tablet 20 mg PO DAILY 5 days #5 tabs 08/01/23 cyclobenzaprine 10 mg tablet 10 mg PO TID #10 tabs 01/30/24 naproxen 500 mg tablet (Naprosyn) 500 mg PO BID #20 tabs 01/30/24 tobramycin 0.3 % eye drops 2 drp ophthalmic-Left Q4H 7 days 08/02/25 #5 mL Allergies Allergy/AdvReac Type Severity Reaction Status Date / Time amoxicillin Allergy Hives Verified 08/02/25 17:53 Penicillins Allergy Hives Verified 08/02/25 17:53 Review of Systems Eyes: Eyes: Denies blurry vision, Denies diplopia, Reports eye discharge, Reports itchy eyes, Denies seeing flashes, Denies photophobia and Denies spots in vision Cardiovascular: Cardiovascular: Denies chest pain Respiratory: Respiratory: Denies cough Gastrointestinal: Gastrointestinal: Denies abdominal pain, Denies nausea and Denies vomiting Musculoskeletal: Musculoskeletal: Denies back pain Integumentary/Breasts: Skin/Breast: Denies rash Allergic/Immunologic: Allergic/Immunologic: Reports itchy eyes PMFSH Social History Social History Advance Directives: No Advance Directives Information Provided: No Do you have a plan to hurt others: No Plan Physical Exam ED Vital Signs: Vital Signs - 24 hr 08/02/25 17:49 08/02/25 18:38 Temperature 98.2 F 98.2 F Pulse Rate 84 84 Respiratory Rate 18 18 Blood Pressure 124/72 124/72 Pulse Oximetry 97 97 Oxygen Delivery Method Room Air Room Air BMI result Body Mass Index 34.9 Const General: healthy appearing, comfortable, no acute distress, alert and awake Nutritional Appearance: well nourished Orientation/consciousness: patient oriented x3 HENMT Head: Yes normocephalic and Yes atraumatic Eyes Other: there was mild left conjunctival injection. A small amount of discharge with the nasal side of the left eye. No obvious foreign body no significant periorbital edema Eyelids: Yes eyelids normal Conjunctivae: conjunctival abnormal left conjunctival injection and discharge Sclerae: sclerae normal Corneas: corneas normal Pupils: Equal, round and reactive pupils present EOM: EOMs intact bilaterally Direct Ophthalmoscopy: No photophobia Neck Neck: Yes full ROM Resp Effort & Inspection: normal respiratory effort, able to speak in complete sentences and not labored Neuro General: patient oriented x3 Cranial nerves: Yes Equal, round and reactive pupils present and Yes Bilaterally intact EOM present Cognition (Neuro): normal cognition Medical Decision Making Medical Decision Making MDM Narrative: the patient has evidence of acute conjunctivitis, we will treat with tobramycin eyedrops. She does not use corrective lenses. There was no trauma or injury. Low suspicion for corneal abrasion. Differential Diagnosis Differential Diagnoses: The differential diagnosis associated with the presentation includes Conjunctivitis Corneal abrasion Iritis Blepharitis Hordeolum Discharge Plan Discharge Clinical Impression: Conjunctivitis Patient Disposition: Home, Self-Care Instructions: Conjunctivitis (ED) Additional Instructions: you appear to have pinkeye of the left eye. Use the eyedrops as prescribed follow-up with your primary doctor, return for new or worsening symptoms wash your hands frequently Prescriptions: New tobramycin 0.3 % drops 2 drp ophthalmic-Left Q4H 7 Days Qty: 5 0RF No Action acetaminophen [Tylenol Extra Strength] 500 mg tablet 500 mg PO Q6H PRN (Reason: pain) Qty: 30 0RF ibuprofen 600 mg tablet 600 mg PO Q6H PRN (Reason: pain) Qty: 30 0RF lidocaine [Lidoderm] 5 % adhesive patch,medicated 1 patch topical DAILY Qty: 30 0RF Rx Instructions: leave on most painful area for up to 12 hrs methocarbamol 750 mg tablet 1,500 mg PO TID 3 Days Qty: 18 0RF prednisone 20 mg tablet 20 mg PO DAILY 5 Days Qty: 5 0RF oxycodone 5 mg tablet 5 mg PO Q6H PRN (Reason: pain) Qty: 7 0RF Rx Instructions: Partial Fill upon patient request. cyclobenzaprine 10 mg tablet 10 mg PO TID Qty: 10 0RF naproxen [Naprosyn] 500 mg tablet 500 mg PO BID Qty: 20 0RF Interventions: ED Discharge Assessment Last Done: 08/02/25 18:38 Discharge Date/Time: 08/02/25 18:39 Print Language: Malay
--- OUTSIDE RECORDS SUMMARY | 2025-08-02 18:37 | XMS_ITS | Data Portability ---
Author Organization [facility], [facility] Address [address] [place] [address] Care Team Providers Care Vacation Sales Advisor Name Role Phone Unavailable Primary Care Provider [phone] Assessment Encounter Date Assessment Date Assessment LastModified by Organization Details LastModified Time 08/30/2024 08/30/2024 Surgery: Open reduction and internal fixation, left intercondylar distal humerus fracture with olecranon osteotomy and ulnar nerve transposition. Date of surgery: 05/07/2024 Surgeon: Dr. Chang HPI: 39-year-old right hand dominant woman presents status post above surgery. Patient reports frustration with PT because she still doesn't have normal ROM, cannot get full etension. Of note, she did start physical therapy late because she lost the prescription. However, she has been working with them and doing her daily exercises, but cannot fully straighten. Still has the numbness/tinglin g along the ulnar nerve distribution, she is aware that was involved in surgery as well. It has been slowly improving but when she hits her elbow, very sharp pains. Her ROM is her main concern. She was given a work note with accommodations, but can't lift more than 5 lbs and with decreased elbow ROM, work is difficult. She reports her boss just told her not even to come back in since she can't do much. She is motivated to work. She was seen yesterday by Shae Moreno. She is referred back to me to discuss potential manipulation of the elbow. Patient is reluctant to pursue the manipulation. She is asking for muscle relaxants. On Past family, medical, social history and review of symptoms have been reviewed, updated, and it is located in the patient's chart. 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 ---- edema - none ---- ecchymosis - none ---- deformity - none - ROM: ---- Active: quite stiff. 10-110 degrees. I could not passively extend her due to stiffness/pain. Nearly full supination. Full pronation. --- full ROM wrist digits, cable lacer improving - Palpation: ---- tenderness - none - Vascularity ---- 2+ radial pulse - Neurological --- positive sensation to touch. altered sensation along ulnar nerve distribution consistent with injury, improving --- radial, median, ulnar sensorimotor intact IMAGING: X-rays ordered, obtained, and independently reviewed at [facility] previously. 3 views left elbow independently reviewed by myself reveals surgical hardware in appropriate position without displacement or failure. Fracture pieces are well aligned. Some new bony callous compared to previous films. There is no sign of heterotopic ossification. IMPRESSION & PLAN: Findings and situation discussed with patient. She has healed well, aside from the continued stiffness. - continue WBAT LUE, working with physical therapy, focusing on ROM - she will try to continue working with the altered work note, since she cannot afford to stay out of work -I discussed the pros and cons of manipulation. I would avoid preoperative block. She has some persistent ulnar nerve symptoms from her initial surgery. She would like to work on this a little bit longer in physical therapy before committing to a manipulation. I think that is reasonable. I gave her a new prescription for therapy and she will follow-up in 6 weeks. If she is not doing well, she may still need a manipulation. I do not think her clinical progress is that far off the norm. If she has long-term persistent stiffness, she may require column procedure in the more distant future. All questions were answered. Speech recognition financial services education consultant software was used to create portions of this document. An attempt at proofreading has been made to minimize errors. Please call for corrections. Not available 08/30/2024 13:44:27 10/14/2024 10/14/2024 Surgery: Open reduction and internal fixation, left intercondylar distal humerus fracture with olecranon osteotomy and ulnar nerve transposition. Date of surgery: 05/07/2024 Surgeon: Dr. Chang HPI: 39-year-old right hand dominant woman presents status post above surgery. Patient reports frustration with PT because she still doesn't have normal ROM, cannot get full etension. Of note, she did start physical therapy late because she lost the prescription. However, she has been working with them and doing her daily exercises, but cannot fully straighten. Still has the numbness/tinglin g along the ulnar nerve distribution, she is aware that was involved in surgery as well. It has been slowly improving but when she hits her elbow, very sharp pains. Her ROM is her main concern. She was given a work note with accommodations, but can't lift more than 5 lbs and with decreased elbow ROM, work is difficult. She reports her boss just told her not even to come back in since she can't do much. She is motivated to work. She has taken gabapentin 300 mg tablets 3 times a day. She states that she actually takes 2 tablets 3 times a day and needs a refill. She also has a history of using muscle relaxants and asked about more. She has finished organized therapy but continues to do her own exercises at home. She does not want to go in for manipulation or an open procedure. Past family, medical, social history and review of symptoms have been reviewed, updated, and it is located in the patient's chart. 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 ---- edema - none ---- ecchymosis - none ---- deformity - none - ROM: ---- Active: quite stiff. 10-110 degrees. I could not passively extend her due to stiffness/pain. Nearly full supination. Full pronation. --- full ROM wrist digits, cable lacer improving - Palpation: ---- tenderness - none - Vascularity ---- 2+ radial pulse - Neurological --- positive sensation to touch. altered sensation along ulnar nerve distribution consistent with injury, improving --- radial, median, ulnar sensorimotor intact IMAGING: X-rays ordered, obtained, and independently reviewed at [facility] previously. 3 views left elbow independently reviewed by myself reveals surgical hardware in appropriate position without displacement or failure. Fracture pieces are well aligned. Some new bony callous compared to previous films. There is no sign of heterotopic ossification. The fracture appears healed. IMPRESSION & PLAN: Healed left distal humerus fracture with ulnar neuropathy Findings and situation discussed with patient. She has healed well, aside from the continued stiffness. - continue WBAT LUE, working with physical therapy, focusing on ROM -I discussed the pros and cons of manipulation. I would avoid preoperative block. She has some persistent ulnar nerve symptoms from her initial surgery. I decided to increase her Neurontin to 800 mg 3 times daily. She was given a new prescription today. Hopefully we can break the cycle on her symptoms. If she is not doing well, she may still need a manipulation or column procedure. I do not think her clinical progress is that far off the norm. If she has long-term persistent stiffness, she may require column procedure in the more distant future. All questions were answered. She will follow-up in 8 weeks. Speech recognition financial services education consultant software was used to create portions of this document. An attempt at proofreading has been made to minimize errors. Please call for corrections. Not available 10/14/2024 15:34:14 01/02/2025 01/02/2025 So this came from digits needs to see trauma that fell off a roof yesterday Is a comminuted fracture of his tibia fibula he is in a boot but he is calling out send he wants like an [facility] appointment he said not today not when I said I could probably get him in like Monday would do well but he is flipping out so went to urgent care but there are concerns that he needs surgery I I do not have any space I have here I just went to an urgent care walk-in center so we do not even have x-rays he has a disc surgery: Open reduction and internal fixation, left intercondylar distal humerus fracture with olecranon osteotomy and ulnar nerve transposition. Date of surgery: 05/07/2024 Surgeon: Dr. Chang HPI: 39-year-old right hand dominant woman presents status post above surgery. Patient reports frustration with PT because she still doesn't have normal ROM, cannot get full etension. Of note, she did start physical therapy late because she lost the prescription. However, she has been working with them and doing her daily exercises, but cannot fully straighten. Still has the numbness/tinglin g along the ulnar nerve distribution, she is aware that was involved in surgery as well. It has been slowly improving but when she hits her elbow, very sharp pains. Her ROM is her main concern. She was given a work note with accommodations, but can't lift more than 5 lbs and with decreased elbow ROM, work is difficult. She reports her boss just told her not even to come back in since she can't do much. She is motivated to work. She has taken gabapentin 300 mg tablets 3 times a day. She states that she actually takes 2 tablets 3 times a day and needs a refill. She has been frustrated with her range of motion. She saw her primary care physician who sent her back to physical therapy. She has 20-130 degrees range of motion. She came into the office today smelling like pot. Past family, medical, social history and review of symptoms have been reviewed, updated, and it is located in the patient's chart. 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 The room smells like pot on entry. Left upper extremity - Inspection: ---- skin - surgical incision healed well, benign without evidence of infection. ---- edema - none ---- ecchymosis - none ---- deformity - none - ROM: ---- Active: quite stiff. 20-130 degrees. I could not passively extend her due to stiffness/pain. Nearly full supination. Full pronation. --- full ROM wrist digits, cable lacer improving - Palpation: ---- tenderness - none - Vascularity ---- 2+ radial pulse - Neurological --- positive sensation to touch. altered sensation along ulnar nerve distribution consistent with injury, improving --- radial, median, ulnar sensorimotor intact IMAGING: X-rays ordered, obtained, and independently reviewed at [facility] previously. 3 views left elbow independently reviewed by myself reveals surgical hardware in appropriate position without displacement or failure. Fracture pieces are well aligned. The fractures are well-healed. There is no sign of heterotopic bone. IMPRESSION & PLAN: Healed left distal humerus fracture with ulnar neuropathy Findings and situation discussed with patient. She has healed well, aside from the continued stiffness. - continue WBAT LUE, working with physical therapy, focusing on ROM -I discussed the pros and cons of manipulation. I would avoid preoperative block. She has some persistent ulnar nerve symptoms from her initial surgery. She may continue her Neurontin to 800 mg 3 times daily. Hopefully we can break the cycle on her symptoms. I reassured her that she is doing well with her range of motion. She is definitely functional. I would suggest physical therapy primarily as her mode of treatment. I do not have any limitations on her activity. I encouraged her to use the arm for lifting and swimming and other activities. If she is not doing well, she may still need a manipulation or column procedure. I do not think her clinical progress is that far off the norm. If she has long-term persistent stiffness, she may require column procedure in the more distant future. All questions were answered. She will follow-up in 12 weeks. Speech recognition financial services education consultant software was used to create portions of this document. An attempt at proofreading has been made to minimize errors. Please call for corrections. Not available 01/02/2025 14:17:00 Plan of Treatment Reminders Order Date Submit Date Provider Name Organization Details Last Modified By Last Modified Time Details Appointments None record ed. Lab None record ed. Referral physic al therap ist referr de 2023 00:00: 00 024 Shae Moreno CNP [facility] ([facility]) [address], [place], [address], [address] [facility] [address] 12:15:30 occupa tional therap ist referr de 2023 00:00: 00 024 Shae Moreno CNP [facility] [address], [place], [address], [address] [facility] [address] 12:15:30 Procedures None record ed. Surgeries None record ed. Imaging XR, elbow, 3 or more view 2024 13:43: 47 025 MD [facility] [address],[facility] [address], [place], [address], [address] [facility] [address] 08:14:36 XR, elbow, 3 or more view 2024 14:52: 01 025 Vijay Chang MD [facility] [address], [place], [address], [address] [facility] [address] 08:41:21 XR, elbow, 3 or more view 2024 15:55: 42 025 Shae Moreno CNP [facility] [address], [place], [address], [address] [facility] [address] 09:01:56 XR, elbow, 3 or more view 2023 09:10: 19 024 Shae Moreno CNP [facility] [address], [place], [address], [address] [facility] [address] 12:15:29 MedicationOrder s None record ed. VaccineOrders None record ed. Patient TargetsNo targets recorded. Patient InstructionsNo instructions recorded. Reason for Referral Physical Therapist Referral for Postoperative visit DIAGNOSIS: Surgery: Open reduction and internal fixation, left intercondylar distal humerus fracture with olecranon osteotomy and ulnar nerve transposition. Date of surgery: 05/07/2024 Surgeon: Dr. Bernardo STEEN AND [place]: WBAT up to 10 lbs, gradually increase as she has been NWB since surgery. Very limited ROM, focus on ROM and ADLs FREQUENCY: 2-3 TIMES/WEEK DURATION: 6-8 WEEKS Referring Physician: Shae Moreno, Orthopedic Surgery, [id number] Encounter Date: 06/25/2024 Occupational Therapist Refer ral for Postoperative visit DIAGNOSIS: Surgery: Open reduction and internal fixation, left intercondylar distal humerus fracture with olecranon osteotomy and ulnar nerve transposition. Date of surgery: 05/07/2024 Surgeon: Dr. Bernardo STEEN AND TX: WBAT up to 10 lbs, gradually increase as she has been NWB since surgery. Very limited ROM, focus on ROM and ADLs FREQUENCY: 2-3 TIMES/WEEK DURATION: 6-8 WEEKS Referring Physician: Shae Moreon, Orthopedic Surgery, [id number] Encounter Date: 06/25/2024 Results Created Date Observation Date Name Description Value Unit Range Abnormal Flag Specimen Type Note LastModifiedBy Organization Detail LastModifiedTime 06/25/2024 06/25/2024 elbow 3 view [email or web address]=jxRcQcwIE6oVjxZVc9l%3NTElkDwhnp4nwhg%2Lr8BXw8 bzZgaB3zGlYRpsqTm1MzZIYqGoxMLJ0fYnOKqrn63l2251WP4GjmAgVPkFlJxWzsQuZ Not Available [facility] , [address],[place] [address] , [place] , [address], , 06/25/2024 09:17:27 06/25/2024 06/25/2024 elbow 3 view [email or web address]=tnHrDrqFG0tBvjKFs5i%2ESRguGqnml4ghrz%2Dl9BVw2 boDozL9dKxDGrshIp5SbMUUdIkqFFY9tDrCPtwl23j2478FY6BksEkJCuHqOoBiyCiM Not Available [facility] , [address],[facility] [address] , [place] , [address], , 06/25/2024 09:17:29 08/29/2024 08/29/2024 elbow 3 view [email or web address]=cwSeMqtLB6pGenXUv0w%0LXZbxIrzih6pblg%4Nh2ORo3 jfYpjL4zOsPOxstQj1ItMGAzJjhLTB4aXoDUuaz95h9820UF9Zzs5VHLaEgNbQcxBdO Not Available [facility] , [address],[facility] [address] , [place] , [address], , 08/29/2024 16:05:23 08/29/2024 08/29/2024 elbow 3 view [email or web address]=ptIiUpoRH6tLrfVIs0g%1PLHmnQcexy0qfww%8Lm3YHt6 alZbbG4fSoEPglwQd8TzAPVnGhfMMF0nLxDUcau02z5990JX8Vcu3NRUzOmRwOtaSaX Not Available [facility] , [address],[place] [address] , [place] , [address], , 08/29/2024 16:05:25 10/14/2024 10/14/2024 elbow 3 view [email or web address]=rfZmFqtRQ3rLtkOJe3l%0GNHhrJngly4bpsv%2Qh7JQk1 yuVveO7oUgKYyqpPr5FfCAUsYckSCS6qAnFTzyn98p1519IU8WopIRPQqKwFyCihDbR Not Available [facility] , [address],[place] [address] , [place] , [address], , 10/14/2024 15:02:46 10/14/2024 10/14/2024 elbow 3 view [email or web address]=zlQmPvuKP7rNlxCCq3i%3OBVwaXjsyu8cdwg%2Dn6MCv9 zjVqnA6rTjEKhsmNn8SlFKMcRjcXXD8hHrTNstm30k1451XE0KdiBFFTaBuIlZckShM Not Available [facility] , [address],[facility] [address] , [place] , [address], , 10/14/2024 15:02:48 01/02/2025 01/02/2025 elbow 3 view [email or web address]=ucGfMzsDC7lMucSTa8r%5IUUrxIaecw9idib%2Lb9FRv0 jrEcxF3xQwFAckpXq6ZtKPJnXsfNYL7sFmCFwup66i6584EL9Ikc9uYHYLlOjJemRtH Not Available [facility] , [address],[place] [address] , [place], [place] , [facility], , 01/02/2025 13:49:03 01/02/2025 01/02/2025 elbow 3 view [email or web address]=qjTgPbmPI5lSsuNEs0u%5HKEvgDyfsw8buqv%0Ec1JPo7 ddQauX4oAhHLjlyZh9PwCNQjPuoQQK4oDvPPpyd80m4497KY7Ppl4aDCCVlXnTvnDlO Not Available [facility] , [address] [facility],[place] [address] , [place] , [address], , 01/02/2025 13:49:05 Result Notes Documentation Provider Name and Address Organization Details Recorded Time Xr, Elbow, 3 Or More View : [email or web address] Encrypted=vmOvTefEN6qBhnR Uv6g%7UPQdrRotao9zrtz%2Fg 9BCs3btVwbH2iEwYDsjgUd2Bx QTIaFxgWOJ1tSdPNqrx53j464 9GC6BfuKaMJrAsMtTstJaQ Not Available [facility] 06/25/2024 09:17: 27 Xr, Elbow, 3 Or More View : [email or web address] Encrypted=nlWwRctMZ0tRswC Uv6g%6CIFrvKtkct0izxq%2Fg 9RPv3dsVppF1aWbINtdjYa5Cc SFRrBxcSMY6wWlEPosl08u348 8ZU4LxwZaLIxKrAnZdaXgH Not Available [facility] 06/25/2024 09:17: 29 Xr, Elbow, 3 Or More View : [email or web address] Encrypted=eqBzAzeZV9cIffS Uv6g%2BROobLjxgo1jrlf%2Fg 7NAl0svTnoN4rVbAIsqlVb8Fz BWLwLpfXSI4jYqGLrsy85b132 0LZ4Sdc7PMLlAxIbSvfCrS Not Available [facility] 08/29/2024 16:05: 23 Xr, Elbow, 3 Or More View : [email or web address] Encrypted=lvHdNfzQT8iXngM Uv6g%1DSMnsTsdds9oywi%2Fg 3RRs6lmSvpC0yKiJLbkmZg5Lm GYAmXwfCJJ0hAcNFaff23h536 9MH1Dyw5IXXnDuPrUopEaZ Not Available [facility] 08/29/2024 16:05: 25 Xr, Elbow, 3 Or More View : [email or web address] Encrypted=wxGyTluHW7oUwpY Uv6g%2FKOuiQolqn8gchf%2Fg 1EBg8nsAzxZ1xBkIWuomGl0Fx WDYjGjnEFS7pZmFIslm16y683 2MY9JkxMNBIkQsHfVthUwQ Not Available [facility] 10/14/2024 15:02: 46 Xr, Elbow, 3 Or More View : [email or web address] Encrypted=riGwGbcOP6ePfhV Uv6g%1FHHtzPmgux1vwkt%2Fg 5PKm9dnVotO4aCfBVhnmBs2Wy QETqFnuUQK5yLcOThkx68i458 2IU1BbjEVKLrYsTsWnmNqO Not Available [facility] 10/14/2024 15:02: 48 Xr, Elbow, 3 Or More View : [email or web address] Encrypted=vxAzWtlXK0xLwpA Uv6g%2DIDppAinke1rakv%2Fg 7RIk5cuEldR9pEdLOkwmEy8Xr HYGhPlkDYD0pWbZLcvg01n345 0VH6Kox1tMYXTiMnTgiDsK Not Available [facility] 01/02/2025 13:49: 03 Xr, Elbow, 3 Or More View : [email or web address] Encrypted=woMhOmnKA9kNqjM Uv6g%5KJKfvWvdzv1anrt%2Fg 0VMz4wnPmxO3fHlICetxPr8Wv LXRmNyjZMR8gToMPpxn29o094 0AC6Lmz8lXJJMjGmSgvBgT Not Available [facility] 01/02/2025 13:49: 05 Problems Name Problem SNOMED Code Status Onset Date Resolution Date Notes Provider Name and Address Organization Details Recorded Time Closed supracondylar fracture of humerus 73052770 Active 2023 Vijay Chang MD [address], [place], [address], [facility] 11:16:09 Pain of elbow region 46766912 Active 2024 Vijay Chang MD [address], [place], [address], [facility] 08:47:52 Problem Notes None recorded. Medical Equipment None Reported. Allergies Allergen ID Allergen Name Allergen Category Reaction Reaction Severity Criticality Documentation Date Start Date Code Code System Note Provider Name and Address Organization Details Recorded Time 546252 amoxicill in medicatio n Not available Not available Not available 08/30/2024 723 RxNorm MACHO good[facility] 13:12:45 215362 Product containin g penicilli n (product) medicatio n Not available Not available Not available 08/30/2024 09349 8001 SNOMED MACHO [facility] 13:12:53 Medications Name Authored On Sig Start Date Stop Date Status Note Indication Fill Status Repeat Number Dispense Quantity LastModified by Organization Details LastModified Time aceta minop hen 325 mg table t 4 09:53:09 TAKE 2 TABL ETS (650 MG) BY MOUT H EVER Y 6 HOUR S - (KAMARA IT 4000 MG OF TYLE NOL/ ACET CAMARA OPHE N PER DAY) active Not Available Not availab le 0 Not Available Not Available [facility] 05/22/2024 09:53:09 gabap entin 100 mg capsu le 4 09:53:09 TAKE 1 CAPS ULE BY MOUT H THRE E TIME S A DAY active Not Available Not availab le 0 Not Available Not Available [facility] 05/22/2024 09:53:09 aceta minop hen 500 mg table t 4 09:53:09 TAKE 2 TABL ETS BY MOUT H EVER Y 8 HOUR S. 08/30 aborted Not Available Not availab le 0 Not Available MACHO [facility] 08/30/2024 13:13:05 cyclo benza raghav 5 mg table t 5 06:55:10 TAKE 1 TABL ET BY MOUT H UP TO THRE E TIME S [place] Y NEED ED 08/30 aborted Not Available Not availab le 0 Not Available MACHO [facility] 08/30/2024 13:13:10 docus ate sodiu m 100 mg capsu le 4 09:53:09 TAKE 1 CAPS ULE BY MOUT H TWO TIME S A DAY 08/30 aborted Not Available Not availab le 0 Not Available [facility]ACH[facility] 08/30/2024 13:13:12 gabap entin 300 mg capsu le 5 06:55:10 TAKE 1 CAPS ULE BY MOUT H THRE E TIME S [place] Y 08/30 aborted Not Available Not availab le 0 Not Available MACHO [facility]DR[facility] 08/30/2024 13:13:16 hydro morph one 2 mg table t 4 15:12:06 TAKE 1 TABL ET BY YAMEL LESTER Y 6 TO 8 HOUR S NEED ED FOR RADHA RE PAIN FOR 7 DAYS 08/30 aborted Not Available Not availab le 0 Not Available MACHO [facility] 08/30/2024 13:13:18 ibupr ofen 600 mg table t 4 09:53:09 TAKE 1 TABL ET BY YAMEL Quiñones EVER Y 6 HOUR S NEED ED FOR PAIN 08/30 aborted Not Available Not availab le 0 Not Available MACHO [facility]DR[facility] 08/30/2024 13:13:21 lidoc aakash 5 % topic al patch 4 09:53:09 APPL Y 1 PATC H TOPI CALL Y [place] Y LEAV E ON MOST PAIN FUL AREA FOR UP TO 12 HRS 08/30 aborted Not Available Not availab le 0 Not Available MACHO [facility]DR[facility] 08/30/2024 13:13:23 metho carba mol 750 mg table t 4 09:53:09 TAKE 2 TABL ETS ORAL LY 3 TIME S A DAY FOR 72 HOUR S 08/30 aborted Not Available Not availab le 0 Not Available MACHO [facility]DR[facility] 08/30/2024 13:13:26 napro xen 500 mg table t 4 09:53:09 TAKE 1 TABL ET BY YAMEL UMANZOR E A DAY 08/30 aborted Not Available Not availab le 0 Not Available MACHO [facility]DR[facility] 08/30/2024 13:13:31 oxyco done 5 mg table t 4 09:53:09 TAKE 1 TABL ET BY YAMEL LESTER Y 6 HOUR S NEED ED FOR PAIN 08/30 aborted Not Available Not availab le 0 Not Available MACHO MONDRAGON [facility] 08/30/2024 13:13:33 predn isone 20 mg table t 4 09:53:09 TAKE 1 TABL ET BY MOUT H EVER Y DAY FOR 5 DAYS 08/30 aborted Not Available Not availab le 0 Not Available MACHO MONDRAGON [place] [facility] 08/30/2024 13:13:35 metro nidaz ole 0.75 % (37.5 mg/5 gram) vagin al gel 14:54:21 INSE RT ONE APPL ICAT ORFU L VAGI VILMA Y AT BEDT TAYE FOR 7 DAYS . active Not Available Not availab le 0 Not Available Not Available price - External Data Service - prod 04/07/2025 14:54:21 aceta minop hen 300 mg-co deine 30 mg table t 16:02:44 TAKE 1 TO 2 TABL ETS BY MOUT H EVER Y 6 HOUR S NEED ED FOR PAIN active Not Available Not availab le 0 Not Available Not Available price - External Data Service - prod 05/09/2025 16:02:44 clind amyci n HCl 300 mg capsu le 16:02:45 TAKE 2 CAPS ULES BY MOUT H TO STAR T THEN TAKE 1 CAPS ULE BY MOUT H EVER Y 6 HOUR S UNTI L FINI SHED active Not Available Not availab le 0 Not Available Not Available price - External Data Service - prod 05/09/2025 16:02:45 cyclo benza raghav 10 mg table t 5 10:47:43 TAKE 1 TABL ET BY MOUT H THRE E TIME S [place] Y active Not Available Not availab le 0 Not Available Not Available price - External Data Service - prod 06/03/2025 10:47:43 gabap entin 800 mg table t 5 10:47:43 TAKE 1 TABL ET BY MOUT H THRE E TIME S [place] Y active Not Available Not availab le 0 Not Available Not Available price - External Data Service - prod 06/03/2025 10:47:43 Vitals Date Recorded Body height Body mass index (BMI) Body weight Provider Name and Address Organization Details Last Updated DateTime 08/29/2024 152.4 cm 33.2 kg/m2 64835.7 g Guadalupe frazier [place] [facility] 08/29/2024 15:55:50 Date Recorded Body height Body mass index (BMI) Body weight Provider Name and Address Organization Details Last Updated DateTime 08/30/2024 152.4 cm 34.4 kg/m2 50954.26 g MACHO MONDRAGON [facility] 08/30/2024 13:12:59 Date Recorded Body height Body mass index (BMI) Body weight Provider Name and Address Organization Details Last Updated DateTime 10/14/2024 152.4 cm 34.4 kg/m2 66086.26 g MACHO MONDRAGON [facility] 10/14/2024 14:52:06 Date Recorded Body height Body mass index (BMI) Body weight Provider Name and Address Organization Details Last Updated DateTime 01/02/2025 152.4 cm 35.2 kg/m2 21197.63 g GABBI YOUNG [facility] 01/02/2025 13:43:08 Date Recorded Body height Body mass index (BMI) Body weight Provider Name and Address Organization Details Last Updated DateTime 06/25/2024 152.4 cm 33.2 kg/m2 65441.7 g Fidelia joaquin [facility] 06/25/2024 09:09:33 Social History Social History Observation Description Date Observed Sex Unknown 05/12/2025 Legal Sex Female Status Not (finding) 08/02/20 25 No social history survey screeners recorded No social history SDOH screeners recorded Functional Status None recorded. No Functional Screening assessment recorded No Functional SDOH screeners recorded Mental Status None recorded. No Mental Screening assessment recorded No Mental SDOH screeners recorded Family History Nothing Reported. Medical History No medical history recorded. Gynecological HistoryNo gynecological history recorded. Obstetrics History GPAL:G 0 P 0 0 0 0 Past Encounters Encounter ID Performer Location Encounter Start Date Encounter Closed Date Diagnosis/Indication Diagnosis SNOMED-CT Code Diagnosis ICD10 Code Diagnosis IMO Codes Diagnosis Note [id number] VIRIDIANA Molina [address] [place] [address] 05/22/2024 09:51:24 06/14/2024 21:07:39 Closed supracondylar fracture of humerus 67951470 S42.412D Postoperative visit 1836 09450 Z48.89 [id number] Shae Moreno, VIRIDIANA [facility] [address] [place] [address] 06/25/2024 08:57:36 07/24/2024 12:15:29 Pain of elbow region 28959646 M25.522 [id number] Postoperative visit 1836 11580 Z48.89 [id number] Closed sup racondylar fracture of humerus [id number] S42.412D [id number] Shae Moreno CNP [facility] [address] [place] [address] 08/29/2024 15:44:52 09/11/2024 09:01:56 Closed supracondylar fracture of humerus 27894051 S42.412D Postoperative visit 1836 04517 Z48.89 [id number] Closed fra cture of lower end of humerus 791828672 S42.492D [id number] MD [facility] [address] [place] [address] 08/30/2024 12:50:26 09/12/2024 09:32:14 Closed supracondylar fracture of humerus 42178522 S42.412D [id number] MD [facility] [address] [place] [address] 10/14/2024 14:47:02 10/29/2024 08:41:21 Closed supracondylar fracture of humerus 48788545 S42.412D [id number] Vijay Chang MD [facility] [address] [place] [address] 01/02/2025 13:32:01 01/09/2025 08:14:36 Closed supracondylar fracture of humerus 16747871 S42.412D Health Concerns Section Related Observation LastModified by Organization Detai ls LastModified Time None Recorded Concern Status LastModified by Organization Details LastModified Time None Recorded SDOH Concern Status LastModified by Organization Detai ls LastModified Time None Recorded Advance Directives Directive None Recorded Payers Insurance Date Sequence Insurance Name Policy Number Policy Manzanares Covered Member ID Manzanares Member ID Guarantor Name 06/06/2025 1 [place] [facility] Nancy Ray [id number] Nancy Ray Notes Date Note Type Note Provider Name and Address Organization Details Recorded Time 06/25/2024 text/html I am seeing the patient today under the supervision of Dr. Childress who was available but who did not see the patient. Surgery: Open reduction and internal fixation, left intercondylar distal humerus fracture with olecranon osteotomy and ulnar nerve transposition.Date of surgery: 05/07/2024Surgeon: Dr. Chang Clinical update 06/25/2024: Patient presents stating unfortunately has not yet started PT because she lost the prescription. Her PCP ordered and she is due to start in a couple of weeks. Her PCP also gave her a muscle relaxer which is helping with some soreness along the left upper extremity but not helping with the overall pain. PCP offered percocet. She reports no cable lacer strength in her left hand. She is right-handed. Incision has healed well no issues. still has altered sensation along ulnar nerve distribution. HPI: 39-year-old right hand dominant woman presents status post above surgery. Patient reports pain is tolerable, using hydromorphone, Tylenol, gabapentin. Has some tingling down from the elbow to the small finger that comes and goes. Elbow is very stiff, and she is very scared to move it. She reports she was told she would need a cast for 4 months. Past family, medical, social history and review of symptoms have been reviewed, updated, and it is located in the patient's chart. 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 healed well---- edema - none---- ecchymosis - none---- deformity - none- ROM:---- Active: very stiff. Able to pronate and nearly fully supinate. Would not extend arm beyond 30 degrees or flex elbow beyond 90 degrees. Very stiff when I attempted PROM, and did not allow beyond 30-90 degrees. She was also fearful of pain.- Palpation:---- tenderness - posterior elbow along olecranon- Vascularity---- 2+ radial pulse- Neurological--- positive sensation to touch. altered sensation along ulnar nerve distribution consistent with injury--- radial, median, ulnar sensorimotor intact IMAGING: X-rays ordered, obtained, and independently reviewed at [facility] today. 3 views left elbow independently reviewed by myself reveals surgical hardware in appropriate position without displacement or failure. Fracture pieces are well aligned. Some new bony callous compared to previous films IMPRESSION: 39-year-old woman status post ORIF left distal humerus fracture with olecranon osteotomy and ulnar nerve transposition 05/07/[address] Chang, recovering well but with significant stiffness elbow PLAN: Findings and situation discussed with patient.-Reinforced the importance of physical therapy. She will start this in a couple of weeks. I also want her to start occupational therapy to improve use of her left hand as she has very weak cable lacer strength and poor function. Needs better range of motion for ADLs. May be WBAT up to 10 lbs as she gradually increases weight with physical therapy Patient requesting return to work. I discussed with her minimal use of the left arm, no lifting more than 5 pounds, only if needed. Follow-up to be with surgeon. Due to continued stiffness, could potentially need manipulation of elbow FOLLOW UP: [address] Chang Speech recognition financial services education consultant software was used to create portions of this document. An attempt at proofreading has been made to minimize errors. Please call for corrections. Shae Moreno, [employer]ING SO[employer]ER [address] [facility] [address], [place], [address], [facility] 06/25/2024 10:44:08 08/29/2024 text/html I am seeing the patient today under the supervision of Dr. Childress who was available but who did not see the patient. Surgery: Open reduction and internal fixation, left intercondylar distal humerus fracture with olecranon osteotomy and ulnar nerve transposition.Date of surgery:05/07/2024S urgeon:Dr. Chang HPI:39-year-old right hand dominant woman presents status post above surgery. Patient reports frustration with PT because she still doesn't have normal ROM, cannot get full etension. Of note, she did start physical therapy late because she lost the prescription. However, she has been working with them and doing her daily exercises, but cannot fully straighten. Still has the numbness/tingling along the ulnar nerve distribution, she is aware that was involved in surgery as well. It has been slowly improving but when she hits her elbow, very sharp pains. Her ROM is her main concern. She was given a work note with accommodations, but can't lift more than 5 lbs and with decreased elbow ROM, work is difficult. She reports her boss just told her not even to come back in since she can't do much. She is motivated to work. Past family, medical, social history and review of symptoms have been reviewed, updated, and it is located in the patient's chart. 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 45-120 degrees, cannot extend beyond 45 degrees. I could not passively extend her due to stiffness/pain. Nearly full supination. Full pronation.--- full ROM wrist digits, cable lacer improving- Palpation:---- tenderness - none- Vascularity---- 2+ radial pulse- Neurological--- positive sensation to touch. altered sensation along ulnar nerve distribution consistent with injury, improving--- radial, median, ulnar sensorimotor intact IMAGING:X-rays ordered, obtained, and independently reviewed at [facility] today. 3 views left elbow independently reviewed by myself reveals surgical hardware in appropriate position without displacement or failure. Fracture pieces are well aligned. Some new bony callous compared to previous films IMPRESSION & PLAN: Findings and situation discussed with patient. She has healed well, aside from the continued stiffness.- continue WBAT LUE, working with physical therapy, focusing on ROM- she will try to continue working with the altered work note, since she cannot afford to stay out of work- Today's follow up was supposed to be with surgeon but was rescheduled. I will schedule her to see Dr. Chang due to continued stiffness, could potentially need manipulation of elbow FOLLOW UP:with Dr. Chang Speech recognition financial services education consultant software was used to create portions of this document. An attempt at proofreading has been made to minimize errors. Please call for corrections. Shae Moreno, [employer] [address] [facility] [address], [place], [address], [place] [facility] 08/29/2024 18:22:46 Care Team Name Role Member ID Specialty Address Phone [employer] Primary Care Provider [place], [place] OBGyn Episode No OBEpisode recorded.
--- OUTSIDE RECORDS SUMMARY | 2025-08-02 18:37 | XMS_ITS | Clinical Summary ---
Author Organization [employer] Address [address] [place] [address] [address] [place] [address] Care Team Providers Care Marketing Proposal Coordinator Name Role Phone Sara Alvarez KENNETH Primary Care Provider [phone] Allergies Active Allergy Reactions Criticality Noted Date Comments Amoxicillin Hives 04/29/2024 Penicillins Hives 04/29/2024 Medications docusate sodium (Colace) 100 MG capsule TAKE 1 CAPSULE BY MOUTH TWICE A DAY 180 capsule 5 Active acetaminophen (Tylenol) 500 MG tablet TAKE 2 TABLETS BY MOUTH EVERY 8 HOURS NEEDED FOR MILD OR MODERATE PAIN 30 tablet 5 Active cyclobenzaprine (Flexeril) 10 MG tabletIndications: Closed supracondylar fracture of left humerus with routine healing TAKE 1 TABLET BY MOUTH THREE TIMES DAILY 90 tablet 1 5 Active gabapentin (Neurontin) 800 MG tabletIndications: Closed supracondylar fracture of left humerus with routine healing TAKE 1 TABLET BY MOUTH THREE TIMES DAILY 90 tablet 2 5 Active Active Problems Problem Noted Date Diagnosed Date Vaginal discomfort 01/31/2025 Closed supracondylar fractur e of left humerus [...] schedule f/u. Vaginitis 06/05/2024 Assessment & Plan (01/31/2025 4:24 PM EDT): Hx suggests bv, pt requests treatment today as feels like previous infections, Rx sent . Assessment & Plan (06/05/2024 4:22 PM EDT): Will obtain self swabs for Bv/yeast today, if tx required will send rx for 0.75%metrogel to be applied intravaginally at bedtime x 5 days. Advised pt to abstain from use of scented soaps and detergents. Encounters Date Type Department Care Team Description 06/21/2025 Refill [facility] [address] [place] [address] Sara Alvarez, KENNETH Closed supracondylar fracture of left humerus with routine healing from Last 3 Months Immunizations Immunization Administration [...] Sign Reading Time Taken Comments Blood Pressure 105/75 01/31/2025 2:52 PM EDT Pulse 77 01/31/2025 2:52 PM EDT Temperature 36.8 C (98.2 F) 01/31/2025 2:52 PM EDT Respiratory Rate 18 01/31/2025 2:52 PM EDT Oxygen Saturation 98% 01/31/2025 2:52 PM EDT Inhaled Oxygen Concentration - - Weight 82.6 kg (182 lb) 01/31/2025 2:52 PM EDT Height 152.4 cm (5') 12/19/2024 10:31 AM EDT Body Mass Index 35.54 12/19/2024 10:31 AM EDT Plan of Treatment Health Maintenance Due Date Last Done Comments Family Planning (PISQ) 2001 HPV Vaccines (1 - 3-dose series) 2001 Pneumococcal Vaccine: Pediatrics (0 to 5 Years) and At-Risk Patients (6 to 49) Years (1 of 2 - PCV) 2005 Pap Smear 2007 Hepatitis B Vaccines (2 of 3 - 19+ 3-dose series) 04/24/2007 03/27/2007 Cervical Cancer Screening 01/27/2016 HPV/Cotest 01/27/2016 COVID-19 Vaccine ( - 2024-2 6 season) 2025 Influenza Vaccine (#1) 2025 07/17/2020 SDOH Screening 05/10/2025 05/10/2024 Depression Monitoring 06/21/2025 12/19/2024 , 12/19/2024 Alcohol/Substance Use Screening 12/19/2025 12/19/2024 Disability Screening 12/19/2025 12/19/2024 Tobacco Screening 12/19/2025 12/19/2024 Lipid Panel 12/19/2029 12/19/2024 DTaP/Tdap/Td Vaccines (3 - T d or Tdap) 12/19/2034 12/19/2024, 05/08/2014 Zoster Vaccines (1 of 2) 01/27/2036 RSV Patients and Patients Aged 60 years or older (1 - 1-dose 75+ series) 2061 HIV Screening Completed 12/19/2024, 12/19/2024 Hepatitis C Screening Completed 12/19/2024 , 12/19/2024 HIB Vaccines Aged Out No longer eligi [...] on patient's age to complete this topic Procedures Procedure Name Priority Date/Time Associated Diagnosis Comments HEPATITIS C AB W/REFL TO HCV RNA, QN, PCR Routine 12/19/2024 11:08 AM EDT Routine screening for STI (sexually transmitted infection) HIV 1/2 ANTIGEN/ANTIBODY, FOURTH GENERATION W/RFL Routine 12/19/2024 11:08 AM EDT Routine screening for STI (sexually transmitted infection) LIPID PANEL, STANDARD Routine 12/19/2024 11:08 AM EDT Screening, lipid from Last 3 Months or Most Recently Relevant to Health Maintenance Results * Hepatitis C Antibody with Reflex to HCV, RNA, Quantitative, Real-Time PCR (12/19/2024 11:08 AM EDT) Pathologist [facility] Hepatitis C Antibody Nonreactive Nonreactive [facility] Comment:Antibodies to HCV no t detected; does not exclude early acuteHCV infection. Blood Venous blood specimen / Unknown 12/19/2024 11:08 AM EDT 12/19/2024 1:16 PM EDT Sara Alvarez [facility] BLOOD ORDERABLES Final Resul t Performing Organization Address [facility] Co de Phone Number [facility] [address] [place] [address] [phone] * HIV-1/2 Antigen and Antibodies, Fourth Generation, with Reflexes (12/19/2024 11:08 AM EDT) HIV AB/AG Nonreactive Nonreactive [facility] Comment:HIV-1 p24 Ag and/or HIV-1/HIV-2 Ab not detected.A test result that is nonreactive does not exclude thepossibility of exposure to or infection with HIV-1 and/orHIV-2. Nonreactive results in this assay for individualswith prior exposure to HIV-1 and/or HIV-2 may be due toantigen and antibody levels that are below the limit ofdetection of this assay.The [employer] Spine HIV Ag/Ab Combo assay result andsupplemental assay results should be interpreted inconjunction with the patient's clinical presentation,history and other laboratory results. If the results areinconsistent with clinical evidence, additional testing issuggested to confirm the result. Blood Venous blood specimen / Unknown 12/19/2024 11:08 AM EDT 12/19/2024 1:16 PM EDT Sara Alvarez [facility] BLOOD ORDERABLES Final Resul t Performing Organization Address [facility]/ZIP Co de Phone Number [facility] [address] [place] [address] [phone] Lipid Panel, Standard (12/19/2024 11:08 AM EDT) Triglycerides 44 <150 mg/dL [facility] Comment:Desirable Triglyceri de: less than 150 mg/dLBorderline High Triglyceride 150-199 mg/dLHigh Triglyceride: 200-499 mg/dLVery High Triglyceride: greater than or equal to 5OO mg/dL Cholesterol 139 <200 mg/dL [facility] Comment:Desirable Cholestero l: less than 200 mg/dLBorderline High Cholesterol: 200-239 mg/dLHigh Cholesterol: greater than 239 mg/dL LDL Cholesterol Calculated 70 <100 mg/dL [facility] Comment:Desirable LDL: less than 100 mg/dLNear Optimal/Above Optimal LDL: 110- 129 mg/dLBorderline High LDL: 130-159 mg/dLHigh LDL: 160-189 mg/dLVery High LDL: greater than or equal to 190 mg/dL HDL Cholesterol 61 >40 mg/dL [facility] Comment:Desirable HDL: great er than 40 mg/dL Note: This HDL assay may give artificially low results in patients with liver disease. Blood Venous blood specimen / Unknown 12/19/2024 11:08 AM EDT 12/19/2024 1:16 PM EDT [facility] BLOOD ORDERABLES Final Resul t [facility] [address] [place] [address] [phone] from Last 3 Months or Most Recently Relevant to Health Maintenance Insurance [facility] STANDARD Care Teams Marketing Proposal Coordinator Relationship Specialty Start Date End Date Sara Alvarez ANP [address] [place] [address] [place] [address] PCP - General Family Medicine 06/21/24
--- OUTSIDE RECORDS SUMMARY | 2025-08-02 18:37 | XMS_ITS | Clinical Summary ---
Author Organization Patient Business [facility] Address [address] [place] [address] Care Team Providers Care Brine Tank Operator Name Role Phone Unavailable Primary Care Provider [...] Cervical Cancer Screening: P ap Smear 2007 HPV Vaccines (1 - 3-dose SCD M series) 2013 Depression Screening 08/07/2024 COVID-19 Vaccine (1 - 2024-2 6 season) 2025 Influenza Vaccine (#1) 2025 RSV Immunization Adult Patie nts (1 - 1-dose 75+ series) 2061 HIB [...] 5 Years) and At-Risk Patients (6 to 49 Years) Aged Out No longer eligible b ased on patient's age to complete this topic RSV Immunization Patients Un sneha 20 months Aged Out No longer eligible b ased on patient's age to complete this topic Varicella Vaccines Aged Out No longer eligible based on patient's age to complete this topic
[2025-08-02 18:38] VITALS: BP 124/72; PULSE 84; RESP 18; TEMP 36.8; O2SAT 97
== END 2025-08-02 18:39 | disposition home or self-care (01) ==
PROVIDERS: Emergency Provider Student in an Organized Health Care Education/Training Program; PCP Nurse Practitioner Primary Care
DX: H10.9 Unspecified conjunctivitis (principal); H57.12 Ocular pain, left eye
CPT/HCPCS: 99282